=== PATIENT | female | born 1965 | race American Indian/Alaskan Native ===

== ENCOUNTER 2021-03-02 18:51 | Emergency (ER) | payer SELFPAY ==
[2021-03-02 20:20] VITALS: BP 157/70
== END 2021-03-03 04:41 | disposition left against medical advice (07) ==
LOC: ED 18:51
DX: R19.7 Diarrhea, unspecified (principal); M54.9 Dorsalgia, unspecified; Z53.21 Procedure and treatment not carried out due to patient leaving prior to being seen by health care provider